=== PATIENT | male | born 1975 | race Caucasian/White ===

== ENCOUNTER → 2017-03-10 | Outpatient (CLI) | payer OTHER ==
[~2017-03-10] MED LIST: CALC500C3 PO; CIPR-255 PO; MULT-267 PO
== END | disposition home or self-care (01) ==
LOC: C.PATHSPEC 17:40
PROVIDERS: ATTEND Plastic Surgery
DX: L98.9 Disorder of the skin and subcutaneous tissue, unspecified (principal)